=== PATIENT | female | born 1990 | race Two or more races ===

== ENCOUNTER 2021-06-22 10:56 | Emergency (ER) | payer OTHER ==
[~2021-06-22] VITALS: Ht 157.5 cm; Wt 61.2 kg
[2021-06-22] MEDS ORDERED: DICLOFENAC POTA50 MG PO (16:37)
== END 2021-06-22 17:28 | disposition home or self-care (01) ==
LOC: ER 10:56
DX: S93.492A Sprain of other ligament of left ankle, initial encounter (principal); M79.672 Pain in left foot; X50.0XXA Overexertion from strenuous movement or load, initial encounter; Y93.01 Activity, walking, marching and hiking; Y92.89 Other specified places as the place of occurrence of the external cause; Y99.8 Other external cause status